=== PATIENT | female | born 1945 | race Caucasian/White ===

== ENCOUNTER 2022-02-17 13:09 | Inpatient (IN) | payer OTHER ==
[~2022-02-17] VITALS: Ht 160 cm; Wt 61.2 kg
[2022-02-17 13:15] VITALS: BP_SYST 114
--- NOTE | 2022-02-17 13:30 | NUR ---
Placed in room 8 . Placed on air sampling and monitoring, blood pressure machine and pulse oximeter. To gown for exam. Side rails up. Report given to GUS BUCIO.
--- NOTE | 2022-02-17 13:38 | NUR ---
Pt bib to ER from home. CC General weakness. Pt c/o cough sorethroat, headache nausea, denies vomiting denies fever at this time. Pt states last night was febrile and SOB. Pt is in bed with room air saturation 95% given 2 liters oxygen saturation 98%. VSS, bed side, pt is allergic to codeine and pennicillin.
--- NOTE | 2022-02-17 13:50 | NUR ---
ER DR. MILNER EXAMINING PT AT THE BEDSIDE
--- NOTE | 2022-02-17 14:03 | NUR ---
# 20 gauge angiocath placed to RAC. Use of asceptic technique. Opsite placed over site. Blood return noted. Blood for lab drawn from site. Flushed with 10 cc of normal saline. No evidence of infiltration noted. Patient tolerated well.
[2022-02-17 15:07] LABS: BASOPHILS % (AUTO) 0.7 % (0.0-2.0); EOSINOPHILS % (AUTO) 0.2 % (0.0-4.0); HEMATOCRIT 37.8 % (36-48); HEMOGLOBIN 12.9 g/dL (12.0-16.0); LYMPHOCYTES # (AUTO) 0.5 K/uL (1.0-5.5); MEAN CORPUSCULAR HEMOGLOBIN 34 pg (27-31); MEAN CORPUSCULAR HGB CONC 34 % (32-36); MEAN CORPUSCULAR VOLUME 98 fL (79.0-98.0); MONOCYTES # (AUTO) 0.5 K/uL (0.0-1.0); MONOCYTES % (AUTO) 11.2 % (1.7-9.3); NEUTROPHILS # (AUTO) 3.2 K/uL (1.8-7.7); NEUTROPHILS % (AUTO) 75.9 % (40.0-70.0); PLATELET COUNT (AUTO) 82 K/uL (130-430); RED BLOOD CELL COUNT(AUTO) 3.85 MIL/uL (4.2-6.2); RED CELL DISTRIBUTION WIDTH 13.2 % (9.0-15.0); WHITE BLOOD COUNT (AUTO) 4.2 K/uL (4.8-10.8)
[2022-02-17 15:26] LABS: ANION GAP 7 (5-15); CALCIUM 8.8 mg/dL (8.4-11.0); CHLORIDE 104 mmol/L (98-107); CREATININE 0.94 mg/dL (0.55-1.30); GLUCOSE 124 mg/dL (70-99); POTASSIUM 3.7 mmol/L (3.5-5.1); UREA NITROGEN, BLOOD 8 mg/dL (8-21)
[2022-02-17 15:34] LABS: ALANINE AMINOTRANSFERASE 11 U/L (12-78); ASPARTATE AMINOTRANSFERASE 20 U/L (10-37); TOTAL BILIRUBIN 0.1 mg/dL (0.0-1.0)
--- NOTE | 2022-02-17 16:20 | NUR ---
COVID AND INFLUENZA SWABS OBTAINED AND SENT TO LAB FOR INTERPRETATION.
--- NOTE | 2022-02-17 16:26 | NUR ---
ER at bedside examining patient.
[2022-02-17] MEDS ORDERED: NACL 0.9% 1,000 ML IV ONE (18:45)
[2022-02-17] MEDS ORDERED: cefTRIAXone 1 GM IVPB PREMIX 50 ML IV ONE (18:45)
[2022-02-17] MEDS ORDERED: AZITHROMYCIN 250 MG TABLET PO ONE (18:45)
--- NOTE | 2022-02-17 19:47 | NUR ---
RECEIVED PT REPORT FROM JOSE LEVI. PT ON ELECTRICAL POWER STATION TECHNICIAN. VSS. PT PROVIDED URINE ON THE BED HUANG. PT LAYING IN BED. SEMI FOWLERS POSITION. PT SPEAKING FULL SENTENCES. NO SIGN SOF DISTRESS AT THIS TIME.
--- NOTE | 2022-02-17 19:57 | NUR ---
Admit bed requested Patient will be admitted to care of Admitted to TELEMETRY OBS unit. Diagnosis CHF, PNEUMONIA Inpatient (Yes or No) NO Observation (Yes or No) YES Orientation concerns or request close to nursing station (Yes or No) NO Covid Status NEGATIVE On vent or bipap NO Isolation requirements NO Needs a sitter NO From Home (Yes or if No enter name of facility) YES Requires Dialysis (Yes or No) NO Med Rec Completed (Yes of No) TO BRING HOME MEDS
[2022-02-17] MEDS ORDERED: AZITHROMYCIN 500 MG in NS 250 ML IV SCH (20:00)
[2022-02-17 20:02] LABS: BILIRUBIN,URINE NEGATIVE (NEGATIVE); BLOOD, URINE NEGATIVE (NEGATIVE); COLOR,URINE YELLOW (YELLOW); GLUCOSE,URINE NEGATIVE (NEGATIVE); KETONES,URINE 1+ (NEGATIVE); LEUKOCYTE ESTERASE ,URINE 1+ (NEGATIVE); NITRITE, URINE NEGATIVE (NEGATIVE); PROTEIN URINE NEGATIVE (NEGATIVE); UROBILINOGEN,URINE 0.2 (0.2-1.0)
[2022-02-17 20:11] LABS: CLARITY/URINE HAZY (CLEAR)
[2022-02-17 20:20] LABS: BACTERIA,URINE FEW /HPF (None Seen); RBC,URINE NONE SEEN /HPF (0-3)
[2022-02-17] MEDS ORDERED: METO25TA3 PO (21:09)
[2022-02-17] MEDS ORDERED: URSO500T PO (21:09)
[2022-02-17] MEDS ORDERED: LEVO88TA5 PO (21:10)
--- NOTE | 2022-02-17 21:11 | NUR ---
Medication reconciliation completed with information provided by patient . Any prior medication reconciliation on file was reviewed and corrected.
--- NOTE | 2022-02-17 21:57 | NUR ---
PT ADMITTED TO TELE 125B. PT CARE ENDORSED TO JOSE LOWE. ALL QUESTIONS ANSWERED. PT VSS. PT BELONGINGS SENT WITH PT. PT WAS PUSHED ON ER SHAKA WITH ACLS PROTOCOL. PT IN STABLE CONDITION.
[2022-02-17 22:37] VITALS: BP_SYST 135
--- NOTE | 2022-02-17 23:29 | NUR ---
ADMISSION NOTE Received patient from ER via gurney. Patient admitted with diagnosis of PNA and CHF. Patient is awake, alert, oriented X 4. Head to toe assessment is done. Patient's skin is intact. IV access to RAC is patent with no s/s of infiltration. Patient oriented to hospital room, call light, toileting, pain management and safety-teach back done. Personal belongings checked and Belongings List documented. Call light within reach. Noted patient has dry cough but oxygen saturation is >95% and negative for COVID 19. Patient stated if she could get something to help her sleep since she was not have a good sleep for one week. Instructed patient will call MD to get an order for cough medication and sleeping pill. Patient's stable with no c/o pain or discomfort at this time.
[2022-02-18] MEDS: TEMAZEPAM 7.5 MG CAPSULE PO PRN (00:18)
--- NOTE | 2022-02-18 07:33 | NUR ---
OPENING NOTE Patient in bed resting, no sign of distress and denies pain. Patient assisted to the restroom, gait unsteady. Educated patient on calling for assistance before attempting to ambulate for safety, patient verbalized understanding and bed alarm on. Patient has a dry hacking cough, states that she has had it for about 1 week. All needs met at this time and safety checks made.
--- NOTE | 2022-02-18 08:00 | NUR ---
OPENING NOTE RECEIVED BEDSIDE REPORT FROM PM NURSE, PATIENT IS STABLE NO DISTRESS IV INTACT,BED AT LOW POSITION CALL LIGHT IN REACH WILL CONT TO MONITOR PATIENT
[2022-02-18] MEDS: cefTRIAXone 1 GM in D5W 50 ML IV SCH (08:23)
[2022-02-18 08:47] VITALS: BP_SYST 121
[2022-02-18] MEDS ORDERED: ENOXAPARIN SODIUM 30 MG/0.3 ML SYRINGE SUBCUT ONE (10:00)
[2022-02-18] MEDS: AZITHROMYCIN 500 MG in NS 250 ML IV SCH (10:10)
[2022-02-18 12:38] VITALS: BP_SYST 105
--- NOTE | 2022-02-18 13:10 | NUR ---
THROAT CULTURE Throat culture collected and sent to lab
[2022-02-18] MEDS: PROMETHAZINE-DM 6.25 MG-15 MG/5 ML UDC PO PRN (13:32)
[2022-02-18 15:34] LABS: ALBUMIN 2.5 g/dL (3.4-4.8); BILIRUBIN,DIRECT 0.4 mg/dL (0.0-0.3); THYROID STIMULATING HORMONE 0.18 uIu/mL (0.36-3.74)
--- NOTE | 2022-02-18 15:39 | NUR ---
ROUNDS Patient in bed asleep, no sign of distress or pain. Breathing is nonlabored and even. Comfort measures provided, all needs met and safety checks made.
[2022-02-18 16:08] VITALS: BP_SYST 130
--- NOTE | 2022-02-18 16:52 | NUR ---
SPOKE WITH FAMILY Spoke with granddaughter, Staci Baez, and updated her on the patient's plan of care.
[2022-02-18 17:14] LABS: TOTAL BILIRUBIN 1.7 mg/dL (0.0-1.0)
--- NOTE | 2022-02-18 18:52 | NUR ---
CLOSING NOTE PATIENT REMAINS STABLE NO DISTRESS PATIENT RESTING WELL, FAMILY AT BEDSIDE, WILL GIVE BEDSIDE REPORT TO PM NURSE
[2022-02-18 20:00] VITALS: BP_SYST 110
[2022-02-19 00:17] VITALS: BP_SYST 103
--- NOTE | 2022-02-19 07:20 | NUR ---
Opening note Received SBAR from night RN. Patient in bed, respirations even, non labored, bed in low and locked position call light within reach, bed alarm on.
[2022-02-19 08:00] VITALS: BP_SYST 119
[2022-02-19] MEDS: cefTRIAXone 1 GM in D5W 50 ML IV SCH (08:31)
[2022-02-19] MEDS: ENOXAPARIN SODIUM 30 MG/0.3 ML SYRINGE SUBCUT SCH (08:33)
[2022-02-19] MEDS: AZITHROMYCIN 500 MG in NS 250 ML IV SCH (10:02)
--- NOTE | 2022-02-19 10:10 | NUR ---
MD DR BRADFORD BEDSIDE EXAMINING PATIENT, NEW ORDERS RECEIVED
[2022-02-19] MEDS ORDERED: FUROSEMIDE 40 MG/4 ML VIAL IVP ONE (10:30)
[2022-02-19 12:45] VITALS: BP_SYST 109
--- NOTE | 2022-02-19 13:45 | NUR ---
cough patient complaining of cough, requested medication
[2022-02-19] MEDS: PROMETHAZINE-DM 6.25 MG-15 MG/5 ML UDC PO PRN (13:59)
--- NOTE | 2022-02-19 15:30 | NUR ---
ambulation assisted patient with ambulation. steady gait. ambulated to hallway by 118 and around by 128 and back to bed. patient denies any pain or discomfort
[2022-02-19 16:51] VITALS: BP_SYST 115
--- NOTE | 2022-02-19 17:20 | NUR ---
ambulation assisted patient with ambulation. steady gait. ambulated to hallway by 118 and around by 128 and back to bed. patient denies any pain or discomfort.
[2022-02-19] MEDS ORDERED: PANTOPRAZOLE SODIUM 40 MG TAB PO ONE (18:00)
[2022-02-19] MEDS ORDERED: SPIRONOLACTONE 25 MG TABLET (ALDACTONE) PO ONE (18:00)
--- NOTE | 2022-02-19 19:28 | NUR ---
closing note provided SBAR to night RN. Patient in bed, respirations even, non labored, bed in low and locked position, call light within reach. Endorsed care to night RN
--- NOTE | 2022-02-19 20:20 | NUR ---
CALLED BACK: DR PRICE CALLED BACK , NOTIFIED MD THAT PT IS STILL ON OBSERVATION STATUS AND ITS BEEN 2 DAYS , MD ORDERED TO CHANGED PT TO INPATIENT STATUS .
[2022-02-19 20:35] VITALS: BP_SYST 125
[2022-02-19] MEDS ORDERED: METOPROLOL SUCCINATE 25 MG TAB.SR.24H (TOPROL XL) PO SCH (21:00)
[2022-02-19] MEDS ORDERED: URSODIOL PO SCH (21:00)
[2022-02-19] MEDS: TEMAZEPAM 7.5 MG CAPSULE PO PRN (22:21)
[2022-02-19] MEDS: URSODIOL 500 MG PO SCH (22:21)
[2022-02-20 00:25] VITALS: BP_SYST 117
[2022-02-20 01:09] VITALS: BP_SYST 143
[2022-02-20] MEDS ORDERED: LEVOTHYROXINE SODIUM 0.088 MG TABLET PO SCH (07:00)
[2022-02-20 08:00] VITALS: BP_SYST 98
[2022-02-20] MEDS ORDERED: METOPROLOL SUCCINATE 25 MG TAB.SR.24H (TOPROL XL) PO SCH (09:00)
[2022-02-20] MEDS: cefTRIAXone 1 GM in D5W 50 ML IV SCH (09:52)
[2022-02-20] MEDS: URSODIOL 500 MG PO SCH ×2 (10:16→21:22)
[2022-02-20] MEDS: AZITHROMYCIN 500 MG in NS 250 ML IV SCH (10:20)
[2022-02-20] MEDS: ENOXAPARIN SODIUM 30 MG/0.3 ML SYRINGE SUBCUT SCH (10:23)
[2022-02-20 16:00] VITALS: BP_SYST 108
[2022-02-20 20:00] VITALS: BP_SYST 122
--- NOTE | 2022-02-20 20:00 | NUR ---
RECEIVED SBAR FROM DAY SHIFT NURSE. PT AWAKE AND ORIENTED. FAMILY AT BEDSIDE.
[2022-02-20] MEDS: TEMAZEPAM 7.5 MG CAPSULE PO PRN (22:45)
--- NOTE | 2022-02-21 06:30 | NUR ---
PT TOOK RESTORIL 15 MG ORAL FOR INSOMNIA. V/S STABLE AFEBRILE. C/C WEAKNESS AND ASSISTED TO AMBULATE RESTROOM.
--- NOTE | 2022-02-21 07:05 | NUR ---
receive the patient from the retail shift manager rn in a stable condition with admitting diagnosis fo congestive heart failure aox4 . no complain of pain at this time . no sign and symptoms of pain . will continue to monitor .
[2022-02-21 07:34] LABS: ANION GAP 6 (5-15); CALCIUM 8.8 mg/dL (8.4-11.0); CHLORIDE 103 mmol/L (98-107); CREATININE 0.74 mg/dL (0.55-1.30); GLUCOSE 92 mg/dL (70-99); POTASSIUM 3.5 mmol/L (3.5-5.1); UREA NITROGEN, BLOOD 7 mg/dL (8-21)
[2022-02-21 08:00] VITALS: BP_SYST 105
[2022-02-21] MEDS: ENOXAPARIN SODIUM 30 MG/0.3 ML SYRINGE SUBCUT SCH (08:54)
[2022-02-21] MEDS: URSODIOL 500 MG PO SCH ×2 (08:54→20:41)
[2022-02-21] MEDS: SPIRONOLACTONE 25 MG TABLET (ALDACTONE) PO SCH (08:54)
[2022-02-21] MEDS ORDERED: AZITHROMYCIN 250 MG TABLET PO ONE (10:30)
[2022-02-21] MEDS ORDERED: LEVOTHYROXINE SODIUM 0.088 MG TABLET PO ONE (10:30)
--- NOTE | 2022-02-21 12:54 | NUR ---
Dietitian Recommendations * Continue Cardiac diet * Encourage increase PO intakes * Adhere to pt food preferences * RD provided heart-healthy MNT LP, MS, RD Please refer to Nutrition Assessment for details. Addendum: 02/21/22 at [address] Amended: Links added.
[2022-02-21 13:47] VITALS: BP_SYST 102
[2022-02-21 14:16] LABS: BASOPHILS % (AUTO) 1.4 % (0.0-2.0); EOSINOPHILS # (AUTO) 0.1 K/uL (0.0-0.4); EOSINOPHILS % (AUTO) 5.5 % (0.0-4.0); HEMATOCRIT 34.4 % (36-48); HEMOGLOBIN 11.8 g/dL (12.0-16.0); LYMPHOCYTES # (AUTO) 0.7 K/uL (1.0-5.5); LYMPHOCYTES % (AUTO) 28.8 % (20.5-51.5); MEAN CORPUSCULAR HEMOGLOBIN 34 pg (27-31); MEAN CORPUSCULAR HGB CONC 34 % (32-36); MEAN CORPUSCULAR VOLUME 99 fL (79.0-98.0); MONOCYTES # (AUTO) 0.3 K/uL (0.0-1.0); MONOCYTES % (AUTO) 13.5 % (1.7-9.3); NEUTROPHILS # (AUTO) 1.2 K/uL (1.8-7.7); NEUTROPHILS % (AUTO) 50.8 % (40.0-70.0); PLATELET COUNT (AUTO) 92 K/uL (130-430)
[2022-02-21 14:36] LABS: WHITE BLOOD COUNT (AUTO) 2.4 K/uL (4.8-10.8)
[2022-02-21 16:00] VITALS: BP_SYST 103
--- NOTE | 2022-02-21 18:17 | NUR ---
will endorse to operation shift supervisor rn for continuity of care
[2022-02-21 19:40] VITALS: BP_SYST 104
--- NOTE | 2022-02-21 19:40 | NUR ---
PM ASSESSMENT; -Pt is a/ox4, resting in bed comfortably. Pt denies any chest pain,pain,sob,or any acute distress. All safety measures in place. Bed alarmed, side rails x2, call light w/in reach. Discussed poc, all safety measures, and to use call light for assistance or if experiencing any pain or any acute distress, pt and spouse verbalized understanding. Cont to monitor pt
[2022-02-21] MEDS: TEMAZEPAM 7.5 MG CAPSULE PO PRN (20:41)
--- NOTE | 2022-02-21 20:41 | NUR ---
NOTES; -Gave Restoril po for sleep upon pt's request. Cont to monitor pt.
--- NOTE | 2022-02-21 22:35 | NUR ---
ROUNDS; -Pt is asleep. NO s/s any chest pain,pain,sob,or any acute distress noted. Call light w/in reach, side rails x3. All safety measures in place. Cont to monitor pt.
[2022-02-22] VITALS (7 sets, daily range): BP systolic 96–122
--- NOTE | 2022-02-22 02:09 | NUR ---
ROUNDS; -Pt is asleep. No s/s any chest pain,pain,sob,or any acute distress noted. Call light w/in reach, side rails x3. All safety measures in place and bed alarmed. Cont to monitor pt
--- NOTE | 2022-02-22 03:55 | NUR ---
ROUNDS; -Pt is still asleep. No s/s any chest pain,pain,sob,or any acute distress noted. Call light w/in reach, side rails x3. All safety measures in place and bed alarmed. Cont to monitor pt
[2022-02-22] MEDS: LEVOTHYROXINE SODIUM 0.088 MG TABLET PO SCH (06:11)
--- NOTE | 2022-02-22 06:45 | NUR ---
CLOSING NOTES; -Pt awakes, took levothyroxine po. Pt denies chest pain,pain,sob,or any acute distress. Assisting with minimum assistance to use BSC, pt just only voided and returned to bed safely. All safety measures in place. Bed alarmed, side rails x2, call light w/in reach. will endorse to next nurse to cont care.
--- NOTE | 2022-02-22 07:24 | NUR ---
receive the patient from the production control technologist rn in a stable condition with admitting diagnosis of congestive heart failure aox4 . no sign and symptoms of respiratory distress . no complain of pain at this time. will continue to monitor
[2022-02-22 07:34] LABS: ANION GAP 4 (5-15); CALCIUM 8.8 mg/dL (8.4-11.0); CHLORIDE 103 mmol/L (98-107); GLUCOSE 89 mg/dL (70-99); POTASSIUM 3.6 mmol/L (3.5-5.1); UREA NITROGEN, BLOOD 9 mg/dL (8-21)
[2022-02-22] MEDS: AZITHROMYCIN 250 MG TABLET PO SCH (08:27)
[2022-02-22] MEDS: URSODIOL 500 MG PO SCH (08:28)
[2022-02-22] MEDS: SPIRONOLACTONE 25 MG TABLET (ALDACTONE) PO SCH (08:28)
[2022-02-22] MEDS: ENOXAPARIN SODIUM 30 MG/0.3 ML SYRINGE SUBCUT SCH (08:29)
--- NOTE | 2022-02-22 10:30 | NUR ---
md toussaint to do static blood pressure . all the vital signs are within normal . the md also order for discharge tomorrow
[2022-02-22] MEDS ORDERED: SPIR25TA PO (10:58)
[2022-02-22 13:35] LABS: BASOPHILS % (AUTO) 0.7 % (0.0-2.0); EOSINOPHILS # (AUTO) 0.1 K/uL (0.0-0.4); EOSINOPHILS % (AUTO) 6.1 % (0.0-4.0); HEMATOCRIT 35.5 % (36-48); HEMOGLOBIN 12.1 g/dL (12.0-16.0); LYMPHOCYTES # (AUTO) 0.8 K/uL (1.0-5.5); LYMPHOCYTES % (AUTO) 34.7 % (20.5-51.5); MEAN CORPUSCULAR HEMOGLOBIN 34 pg (27-31); MEAN CORPUSCULAR HGB CONC 34 % (32-36); MEAN CORPUSCULAR VOLUME 99 fL (79.0-98.0); MONOCYTES # (AUTO) 0.3 K/uL (0.0-1.0); MONOCYTES % (AUTO) 13.7 % (1.7-9.3); NEUTROPHILS % (AUTO) 44.8 % (40.0-70.0); PLATELET COUNT (AUTO) 92 K/uL (130-430); RED CELL DISTRIBUTION WIDTH 13.1 % (9.0-15.0)
[2022-02-22 13:56] LABS: WHITE BLOOD COUNT (AUTO) 2.3 K/uL (4.8-10.8)
[2022-02-22] MEDS ORDERED: URSODIOL 500 MG PO SCH (16:08)
--- NOTE | 2022-02-22 19:02 | NUR ---
will endorse to night rn for continuity of care
[2022-02-23] VITALS: BP_SYST 110
[2022-02-23] MEDS: LEVOTHYROXINE SODIUM 0.088 MG TABLET PO SCH (06:59)
--- NOTE | 2022-02-23 07:12 | NUR ---
receive the patient from the night baker rn in a stable condition . for discharge today at home with home health for OT . no complain of pain , no sign and symptoms of respiratory distress . will continue to monitor
[2022-02-23 08:00] VITALS: BP_SYST 125
[2022-02-23 08:12] LABS: ANION GAP 5 (5-15); CALCIUM 9.2 mg/dL (8.4-11.0); CHLORIDE 108 mmol/L (98-107); CREATININE 0.72 mg/dL (0.55-1.30); GLUCOSE 83 mg/dL (70-99); POTASSIUM 3.8 mmol/L (3.5-5.1); UREA NITROGEN, BLOOD 10 mg/dL (8-21)
[2022-02-23] MEDS: SPIRONOLACTONE 25 MG TABLET (ALDACTONE) PO SCH (08:50)
[2022-02-23] MEDS: AZITHROMYCIN 250 MG TABLET PO SCH (08:50)
[2022-02-23] MEDS: ENOXAPARIN SODIUM 30 MG/0.3 ML SYRINGE SUBCUT SCH (08:51)
[2022-02-23 10:23] VITALS: BP_SYST 125
[2022-02-23 11:32] VITALS: BP_SYST 114
[2022-02-23] MEDS ORDERED: ZIT250 PO (12:35)
[2022-02-23 15:55] VITALS: BP_SYST 125
[2022-02-23 16:58] VITALS: BP_SYST 107
--- NOTE | 2022-02-23 18:10 | NUR ---
the patient was discharge at this time . home with home health for occupational therapy . discharge teachings was done iv armband and satellite project site monitor was discontinue . brought the patinet to the lobby by yony in a stable condition
--- NOTE | 2022-02-26 11:59 | NUR ---
Dispo code 06
== END 2022-02-23 18:10 | disposition home health service (06) | DRG 202 ==
LOC: SED 13:09 → STU 19:52 → INTOOBSV 02-19 20:29 → OBSVTOIN 02-19 20:29
PROVIDERS: ADMIT Internal Medicine; ATTEND Internal Medicine
DX: J20.9 Acute bronchitis, unspecified (principal); J18.8 Other pneumonia, unspecified organism; J06.9 Acute upper respiratory infection, unspecified; E03.9 Hypothyroidism, unspecified; I10 Essential (primary) hypertension; K75.4 Autoimmune hepatitis; D69.6 Thrombocytopenia, unspecified; Z20.822 Contact with and (suspected) exposure to COVID-19; Z88.5 Allergy status to narcotic agent; Z88.0 Allergy status to penicillin
CPT/HCPCS: 36415; 36600; 71045; 80048; 80053; 80076; 81000; 82140; 82803-TC; 83605; 83880; 84443; 84484; 85025; 86713; 87040; 87081; 93005; 96360; 99285; G0378; J0456; J0696; J1650; J1940; J7050; J7060; Q0144

== ENCOUNTER 2022-03-07 10:08 | Emergency (ER) | payer OTHER ==
[~2022-03-07] VITALS: Ht 160 cm; Wt 58.1 kg
[~2022-03-07 10:08] MED LIST: LEVO88TA5 PO; METO25TA3 PO; SPIR25TA PO; URSO500T PO; ZIT250 PO
[2022-03-07 10:10] VITALS: BP_SYST 134
--- NOTE | 2022-03-07 10:10 | NUR ---
Placed in room 2 . Placed on telemetry monitor, blood pressure machine and pulse oximeter. To gown for exam. Side rails up. Report given to JOSE OVALLE.
--- NOTE | 2022-03-07 10:12 | NUR ---
RECEIVED PT FROM JOSE NOEL. PT WAS BIB WITH C/O CHEST PAIN X2 DAYS. PT STATES, "PAIN IS OKAY RIGHT NOW." PT IS AAOX4, RESP E/U, ON R/A. NORMAL S1S2 NOTED. DENIES N/V/D/C. SKIN WARM, CDI, NO EDEMA NOTED. PERIPHERAL PULSES NORMAL. SIDERAILS UP X2. BED IN LOWEST POSITION. AT BEDSIDE.
--- NOTE | 2022-03-07 10:30 | NUR ---
EKG, LABS OBTAINED. # 22 gauge angiocath placed to LAC. Use of asceptic technique. Opsite placed over site. Blood return noted. Blood for lab drawn from site. Flushed with 10 cc of normal saline. No evidence of infiltration noted. Patient tolerated well.
[2022-03-07 10:50] LABS: BASOPHILS % (AUTO) 0.7 % (0.0-2.0); EOSINOPHILS % (AUTO) 1.5 % (0.0-4.0); HEMATOCRIT 36.9 % (36-48); HEMOGLOBIN 12.8 g/dL (12.0-16.0); LYMPHOCYTES # (AUTO) 1.1 K/uL (1.0-5.5); LYMPHOCYTES % (AUTO) 47.3 % (20.5-51.5); MEAN CORPUSCULAR HEMOGLOBIN 34 pg (27-31); MEAN CORPUSCULAR HGB CONC 35 % (32-36); MEAN CORPUSCULAR VOLUME 98 fL (79.0-98.0); MONOCYTES # (AUTO) 0.2 K/uL (0.0-1.0); NEUTROPHILS % (AUTO) 40.5 % (40.0-70.0); PLATELET COUNT (AUTO) 78 K/uL (130-430); RED BLOOD CELL COUNT(AUTO) 3.78 MIL/uL (4.2-6.2); RED CELL DISTRIBUTION WIDTH 13.2 % (9.0-15.0)
[2022-03-07 10:51] LABS: WHITE BLOOD COUNT (AUTO) 2.4 K/uL (4.8-10.8)
[2022-03-07 11:12] LABS: ANION GAP 4 (5-15); CALCIUM 9.2 mg/dL (8.4-11.0); CHLORIDE 106 mmol/L (98-107); CREATININE 0.69 mg/dL (0.55-1.30); GLUCOSE 87 mg/dL (70-99); POTASSIUM 3.8 mmol/L (3.5-5.1); UREA NITROGEN, BLOOD 10 mg/dL (8-21)
[2022-03-07 11:21] LABS: ALANINE AMINOTRANSFERASE 14 U/L (12-78); ALBUMIN 3.5 g/dL (3.4-4.8); ASPARTATE AMINOTRANSFERASE 27 U/L (10-37); TOTAL BILIRUBIN 2.2 mg/dL (0.0-1.0)
--- NOTE | 2022-03-07 11:45 | NUR ---
COVID AND FLU SAMPLES OBTAINED AND TAKEN TO LAB. LINDA AND MED REC COMPLETED.
[2022-03-07] MEDS ORDERED: LEVO88TA5 PO (11:57)
[2022-03-07] MEDS ORDERED: SPIR25TA PO (11:57)
[2022-03-07] MEDS ORDERED: URSO500T7 PO (11:57)
[2022-03-07 13:20] VITALS: BP_SYST 135
== END 2022-03-07 13:20 | disposition home or self-care (01) ==
LOC: SED 10:08
DX: R06.02 Shortness of breath (principal); R07.9 Chest pain, unspecified; Z88.0 Allergy status to penicillin; Z88.5 Allergy status to narcotic agent; Z79.899 Other long term (current) drug therapy; Z20.822 Contact with and (suspected) exposure to COVID-19
CPT/HCPCS: 36415; 71045; 80053; 83605; 83880; 84484; 85025; 93005; 99285

== ENCOUNTER 2022-09-24 13:04 | Emergency (ER) | payer OTHER ==
[~2022-09-24] VITALS: Ht 160 cm; Wt 59.0 kg
[~2022-09-24 13:04] MED LIST changes: -METO25TA3 PO; +URSO500T7 PO
--- NOTE | 2022-09-24 13:10 | NUR ---
Pt brought by / wheelchair, pt presents to ER with L ankle pain/ swelling after she twisted ankle while getting up the couch, denies other injuries, VSS, will cont to monitor.
[2022-09-24 13:13] VITALS: BP_SYST 122
--- NOTE | 2022-09-24 14:08 | NUR ---
Dr Gil evaluating patient at bedside
[2022-09-24] MEDS ORDERED: TRAM50TA2 PO (14:15)
[2022-09-24] MEDS ORDERED: IBUP-1969 PO (14:15)
[2022-09-24] MEDS ORDERED: MORPHINE 2 MG/ML INJ. SYRINGE IM ONE (14:45)
--- NOTE | 2022-09-24 14:50 | NUR ---
emt and rn performed splint on pt. Pt tolerated well.
--- NOTE | 2022-09-24 15:07 | NUR ---
Patient given written and verbal discharge instructions and verbalizes understanding. ER MD discussed with patient the results and treatment provided. Patient in stable condition. ID arm band removed. Rx of IBUPROFEN AND TRAMADOL given. Patient educated on pain management and to follow up with PMD. Opportunity for questions provided and answered. Medication side effect fact sheet provided.
[2022-09-24 15:08] VITALS: BP_SYST 132
== END 2022-09-24 15:07 | disposition home or self-care (01) ==
LOC: SED 13:04
DX: S82.65XA Nondisplaced fracture of lateral malleolus of left fibula, initial encounter for closed fracture (principal); Z88.0 Allergy status to penicillin; Z88.5 Allergy status to narcotic agent; Z79.899 Other long term (current) drug therapy; W06.XXXA Fall from bed, initial encounter; Y93.89 Activity, other specified; Y92.89 Other specified places as the place of occurrence of the external cause; Y99.8 Other external cause status
CPT/HCPCS: 99283; 29515; 73610; 96372; J2270

== ENCOUNTER 2023-06-09 17:09 | Observation (INO) | payer OTHER ==
[~2023-06-09] VITALS: Ht 157.5 cm; Wt 59.4 kg
[~2023-06-09 17:09] MED LIST changes: +IBUP-1969 PO; +TRAM50TA2 PO
[2023-06-09 17:25] VITALS: BP_SYST 134; PULSE 81; RESP 18; TEMP 98.6; O2SAT 97
[2023-06-09] MEDS ORDERED: ASPIRIN 325 MG TABLET PO ONE (17:30)
[2023-06-09 18:43] LABS: INR 1.2 (0.8-1.2)
[2023-06-09] MEDS ORDERED: METO-540 PO (18:45)
[2023-06-09 18:46] LABS: ANION GAP 5 (5-15); CALCIUM 8.3 mg/dL (8.4-11.0); CARBON DIOXIDE 27 mmol/L (23-29); CHLORIDE 109 mmol/L (98-107); CREATININE 0.65 mg/dL (0.55-1.30); GLUCOSE 95 mg/dL (74-106); POTASSIUM 3.7 mmol/L (3.5-5.1); SODIUM SERUM 141 mmol/L (136-145); UREA NITROGEN, BLOOD 11 mg/dL (8-21)
[2023-06-09 18:51] LABS: WHITE BLOOD COUNT (AUTO) 2.2 K/uL (4.8-10.8)
[2023-06-09 18:57] LABS: HEMATOCRIT 36.5 % (36-48); HEMOGLOBIN 12.5 g/dL (12.0-16.0); MEAN CORPUSCULAR HEMOGLOBIN 35 pg (27-31); MEAN CORPUSCULAR HGB CONC 34 % (32-36); MEAN CORPUSCULAR VOLUME 102 fL (79.0-98.0); RED BLOOD CELL COUNT(AUTO) 3.58 MIL/uL (4.2-6.2); RED CELL DISTRIBUTION WIDTH 13.5 % (9.0-15.0)
[2023-06-09 19:03] LABS: PLATELET COUNT (AUTO) 61 K/uL (130-430)
[2023-06-09] MEDS ORDERED: MORPHINE 2 MG/ML INJ. SYRINGE IVP PRN (20:00)
[2023-06-09] MEDS ORDERED: ONDANSETRON HCL 4 MG/2 ML VIAL IVP PRN (20:00)
[2023-06-09] MEDS ORDERED: ACETAMINOPHEN 325 MG TABLET PO PRN ×2 (20:00→20:15)
[2023-06-09 20:05] LABS: BAND % (MANUAL) 2 % (0-6); BASOPHILS % (MANUAL) 0 % (0-2); EOSINOPHILS % (MANUAL) 0 % (0-7); LYMPHOCYTES % (MANUAL) 29 % (20-46); MONOCYTES % (MANUAL) 7 % (0-11)
[2023-06-09 20:06] LABS: OVALOCYTES FEW; PLATELET ESTIMATE DECREASED (ADEQUATE)
[2023-06-09] MEDS ORDERED: METOPROLOL SUCCINATE 25 MG TAB.SR.24H (TOPROL XL) PO ONE (20:30)
[2023-06-09 21:01] VITALS: BP_SYST 117; PULSE 73; O2SAT 98
[2023-06-09 21:33] LABS: BILIRUBIN,URINE NEGATIVE (NEGATIVE); BLOOD, URINE NEGATIVE (NEGATIVE); CLARITY/URINE CLOUDY (CLEAR); COLOR,URINE YELLOW (YELLOW); GLUCOSE,URINE NEGATIVE (NEGATIVE); KETONES,URINE NEGATIVE (NEGATIVE); LEUKOCYTE ESTERASE ,URINE TRACE (NEGATIVE); NITRITE, URINE NEGATIVE (NEGATIVE); PROTEIN URINE NEGATIVE (NEGATIVE); UROBILINOGEN,URINE 0.2 (0.2-1.0)
[2023-06-09 21:56] LABS: BACTERIA,URINE FEW /HPF (None Seen)
[2023-06-09] MEDS: IPRATROPIUM BROM 0.5 MG/2.5 ML VIAL.NEB (ATROVENT) INH SCH (22:33)
[2023-06-09 22:46] VITALS: O2SAT 96
[2023-06-10] MEDS: IPRATROPIUM BROM 0.5 MG/2.5 ML VIAL.NEB (ATROVENT) INH SCH ×4 (03:18→15:11)
[2023-06-10 03:30] VITALS: O2SAT 94
[2023-06-10 05:36] LABS: ANION GAP 6 (5-15); CALCIUM 8.6 mg/dL (8.4-11.0); CARBON DIOXIDE 25 mmol/L (23-29); CHLORIDE 111 mmol/L (98-107); CREATININE 0.56 mg/dL (0.55-1.30); GLUCOSE 75 mg/dL (74-106); POTASSIUM 3.9 mmol/L (3.5-5.1); SODIUM SERUM 142 mmol/L (136-145); UREA NITROGEN, BLOOD 9 mg/dL (8-21)
[2023-06-10 05:43] LABS: ALANINE AMINOTRANSFERASE 16 U/L (12-78); ALBUMIN 2.5 g/dL (3.4-4.8); ASPARTATE AMINOTRANSFERASE 27 U/L (10-37); TOTAL BILIRUBIN 1.8 mg/dL (0.0-1.0); TOTAL PROTEIN, SERUM 5.7 g/dL (6.4-8.3)
[2023-06-10 06:37] LABS: BASOPHILS % (AUTO) 0.8 % (0.0-2.0); EOSINOPHILS # (AUTO) 0.1 K/uL (0.0-0.4); HEMATOCRIT 33.2 % (36-48); HEMOGLOBIN 11.2 g/dL (12.0-16.0); LYMPHOCYTES # (AUTO) 0.9 K/uL (1.0-5.5); LYMPHOCYTES % (AUTO) 39.3 % (20.5-51.5); MEAN CORPUSCULAR HEMOGLOBIN 34 pg (27-31); MEAN CORPUSCULAR HGB CONC 34 % (32-36); MEAN CORPUSCULAR VOLUME 102 fL (79.0-98.0); MONOCYTES # (AUTO) 0.3 K/uL (0.0-1.0); MONOCYTES % (AUTO) 12.1 % (1.7-9.3); PLATELET COUNT (AUTO) 57 K/uL (130-430); RED BLOOD CELL COUNT(AUTO) 3.25 MIL/uL (4.2-6.2); RED CELL DISTRIBUTION WIDTH 13.3 % (9.0-15.0); WHITE BLOOD COUNT (AUTO) 2.3 K/uL (4.8-10.8)
[2023-06-10] MEDS ORDERED: LEVOTHYROXINE SODIUM 0.088 MG TABLET PO SCH (07:00)
[2023-06-10 07:27] VITALS: O2SAT 94
[2023-06-10 07:56] LABS: NEUTROPHILS % (AUTO) 43.8 % (40.0-70.0)
[2023-06-10] MEDS ORDERED: METOPROLOL SUCCINATE 25 MG TAB.SR.24H (TOPROL XL) PO SCH (09:00)
[2023-06-10] MEDS ORDERED: ENOXAPARIN SODIUM 40 MG/0.4 ML SYRINGE SUBCUT SCH (09:00)
[2023-06-10] MEDS ORDERED: ASPIRIN 81 MG TAB.CHEW PO SCH (09:00)
[2023-06-10 11:10] VITALS: O2SAT 98
[2023-06-10 15:11] VITALS: O2SAT 95
[2023-06-10] MEDS ORDERED: NS 500 ML IV ONE (16:00)
[2023-06-10 17:10] VITALS: BP_SYST 108; PULSE 70; RESP 20; TEMP 97.2; O2SAT 98
[2023-06-10] MEDS ORDERED: URSODIOL 500 MG PO SCH ×2 (21:00)
[2023-06-11] MEDS ORDERED: REGADENOSON 0.4 MG/5 ML SYRINGE IVP ONE (09:00)
== END 2023-06-10 17:09 | disposition home or self-care (01) ==
LOC: SED 17:09 → INTOOBSV 19:52 → STU 19:52
PROVIDERS: ADMIT Family Medicine; ATTEND Family Medicine
DX: R07.89 Other chest pain (principal); D61.818 Other pancytopenia; I10 Essential (primary) hypertension; K74.3 Primary biliary cirrhosis; E03.9 Hypothyroidism, unspecified; D69.59 Other secondary thrombocytopenia; Z79.899 Other long term (current) drug therapy
CPT/HCPCS: 99285; 85027; 80048; 81000; 81001; 83880; 85007; 85379; 85610; 85730; 84484 ×2; 36415 ×2; 93005; 71045; 94640 ×2; 80053; 85025; 93306; 96361; 96374; J2270; G0378; 81015; J2785